=== PATIENT | female | born 1975 | race Caucasian/White ===

== ENCOUNTER 2017-01-16 01:46 | Emergency (ER) | payer BC ==
[~2017-01-16] VITALS: Ht 167.6 cm; Wt 61.2 kg
[~2017-01-16 01:46] MED LIST: ALPRAZOLAM0.25 M2 PO; ANAPROX DS550 MG PO; ANTIVERT25 MG PO; CIPRO500 MG PO; CIPROFLOXACIN500 MG PO; CLARITIN10 MG PO; CYCLOBENZAPRINE10 MG PO; FEOSOL45 MG PO; FLAGYL500 MG PO; FLEXERIL10 MG PO; FLORINEF0.1 MG; FLORINEF0.1 MG PO; FOLIC ACID1 MG PO; HYDROCODONE BIT1 T11 PO; HYDROCORTISONE20 MG PO; HYDROCORTISONE5 MG PO; IBUPROFEN600 MG PO; KEFLEX500 MG PO; LEVOFLOXACIN500 MG PO; LYRICA25 M1 PO; MACRODANTIN50 MG PO; MEDROL DOSEPAK4 MG PO; NAPROSYN500 MG PO; NATURE'S BLEND F1 MG PO; ROBAXIN750 MG PO; SERTRALINE HYDR50 MG PO; SERTRALINE50 MG PO; SYNTHROID0.125 MG PO; SYNTHROID0.137 MG PO; ULTRAM50 MG PO; VITAMIN D5000 I2 PO; ZITHROMAX Z PA250 MG PO; ZOFRAN4 MG PO; Zofran4 MG PO
[2017-01-16] MEDS ORDERED: VALIUM10 MG PO (02:51)
[2017-01-16] MEDS ORDERED: PREDNISONE50 MG PO (02:51)
[2017-01-16] MEDS ORDERED: NAPROSYN500 MG PO (02:51)
== END 2017-01-16 03:07 | disposition home or self-care (01) ==
LOC: ED 01:46
DX: M54.14 Radiculopathy, thoracic region (principal); Z79.899 Other long term (current) drug therapy

== ENCOUNTER 2017-02-09 18:23 | Emergency (ER) | payer BC ==
[~2017-02-09] VITALS: Ht 167.6 cm; Wt 59.0 kg
[~2017-02-09 18:23] MED LIST changes: +PREDNISONE50 MG PO; +VALIUM10 MG PO
[2017-02-09] MEDS ORDERED: HYDROCODONE BIT1 T11 PO (19:43)
[2017-02-09] MEDS ORDERED: MEDROL DOSEPAK4 MG PO (19:43)
== END 2017-02-09 21:09 | disposition home or self-care (01) ==
LOC: ED 18:23
DX: M54.2 Cervicalgia (principal); Z79.899 Other long term (current) drug therapy

== ENCOUNTER → 2017-02-25 | Outpatient (CLI) | payer BC | END | disposition home or self-care (01) | LOC: CT 13:58 | DX: M19.012 Primary osteoarthritis, left shoulder (principal); M19.011 Primary osteoarthritis, right shoulder; E27.9 Disorder of adrenal gland, unspecified; M54.9 Dorsalgia, unspecified; M54.6 Pain in thoracic spine ==

== ENCOUNTER 2017-07-12 20:47 | Emergency (ER) | payer BC ==
[~2017-07-12] VITALS: Ht 167.6 cm; Wt 61.2 kg
[2017-07-12 21:43] LABS: BASO % 0.5 % (0.0-1.0); EOS # 0.1 10*3/uL (0.0-0.4); EOS % 1.3 % (1.0-4.0); HEMATOCRIT 38.2 % (37.0-47.0); LYMPH % 36.8 % (27.0-41.0); MEAN CELL VOLUME 91.6 fl (81.0-99.0); MEAN CORPUSCULAR HGB 31.2 pg (27.0-31.0); MEAN PLATELET VOLUME 9.9 fl (9.6-12.3); MONO # 0.6 10*3/uL (0.1-1.0); MONO % 7.6 % (3.0-9.0); NEUT # 4.4 10*3/uL (2.3-7.9); NEUT % 53.6 % (47.0-73.0); PLATELET COUNT AUTOMATED 255 10*3/uL (130-400); RED BLOOD COUNT 4.17 10*6/uL (4.10-5.10); RED CELL DISTRI WIDTH 12.4 % (0-14.5); WHITE BLOOD COUNT 8.2 10*3/uL (4.8-10.8)
[2017-07-12 22:04] LABS: ALBUMIN 3.8 gm/dl (3.1-4.5); ALKALINE PHOSPHATASE 39 U/L (45-117); BUN 11 mg/dl (7-24); CHLORIDE 107 mmol/L (98-107); CPK 31 U/L (26-192); CREATININE 0.75 mg/dL (0.55-1.02); LIPASE 131 U/L (73-393); POTASSIUM 3.5 mmol/L (3.5-5.1); SGOT/AST 6 IU/L (3-35); SGPT/ALT 14 U/L (12-78); SODIUM 140 mmol/L (136-145); TOTAL PROTEIN 6.8 gm/dL (6.4-8.2)
[2017-07-12 22:05] LABS: CKMB < 0.5 ng/ml (0.5-3.6); TROPONIN I < 0.015 ng/ml (<0.045)
[2017-07-13] MEDS ORDERED: LASIX20 MG PO (00:07)
== END 2017-07-13 00:36 | disposition home or self-care (01) ==
LOC: ED 20:47
PROVIDERS: Nurse Practitioner Family
DX: R60.0 Localized edema (principal)

== ENCOUNTER → 2018-01-12 | Outpatient (CLI) | payer BC ==
[~2018-01-12] MED LIST changes: +LASIX20 MG PO
== END | disposition home or self-care (01) ==
LOC: US 01-11 14:00
DX: M79.89 Other specified soft tissue disorders (principal)

== ENCOUNTER → 2018-02-03 | Outpatient (CLI) | payer BC ==
[2018-02-03 09:59] LABS: BASO % 0.4 % (0.0-1.0); EOS # 0.1 10*3/uL (0.0-0.4); EOS % 1.6 % (1.0-4.0); HEMOGLOBIN 13.6 g/dl (12.0-16.0); LYMPH # 1.8 10*3/uL (1.3-4.4); LYMPH % 35.5 % (27.0-41.0); MEAN CELL VOLUME 90.9 fl (81.0-99.0); MEAN CORPUSCULAR HGB 30.2 pg (27.0-31.0); MEAN CORPUSCULAR HGB CONC 33.2 g/dl (33.0-37.0); MEAN PLATELET VOLUME 9.7 fl (9.6-12.3); MONO # 0.4 10*3/uL (0.1-1.0); MONO % 7.8 % (3.0-9.0); NEUT # 2.7 10*3/uL (2.3-7.9); NEUT % 54.5 % (47.0-73.0); PLATELET COUNT AUTOMATED 311 10*3/uL (130-400); RED BLOOD COUNT 4.51 10*6/uL (4.10-5.10)
[2018-02-03 10:39] LABS: ALBUMIN 4.1 gm/dl (3.1-4.5); ALKALINE PHOSPHATASE 51 U/L (45-117); BUN 12 mg/dl (7-24); CHLORIDE 104 mmol/L (98-107); CREATININE 0.73 mg/dL (0.55-1.02); POTASSIUM 3.7 mmol/L (3.5-5.1); SGOT/AST 11 IU/L (3-35); SGPT/ALT 15 U/L (12-78); SODIUM 137 mmol/L (136-145); TOTAL PROTEIN 7.7 gm/dL (6.4-8.2)
[2018-02-04 08:09] LABS: COMPLEMENT C4 001834 24 mg/dL (14-44); IMMUNOGLOBULIN G, QNT 856 mg/dL (700-1600); IMMUNOGLOBULIN M, QNT 80 mg/dL (26-217)
[2018-02-06 10:07] LABS: ANTI-DSDNA ANTIBODIES 096339 <1 IU/mL (0-9)
[2018-02-06 16:07] LABS: A/G RATIO 1.6 (0.7-1.7); ALBUMIN 4.3 g/dL (2.9-4.4); ALPHA-1-GLOBULIN 0.2 g/dL (0.0-0.4); ALPHA-2-GLOBULIN 0.7 g/dL (0.4-1.0); BETA GLOBULIN 0.9 g/dL (0.7-1.3); GAMMA GLOBULIN 0.9 g/dL (0.4-1.8); GLOBULIN, TOTAL 2.7 g/dL (2.2-3.9); M-SPIKE Not Observed g/dL (Not Observed)
== END | disposition home or self-care (01) ==
LOC: US 01-20 10:00 → LAB 09:31 → US 10:00
PROVIDERS: Internal Medicine Rheumatology
DX: E03.9 Hypothyroidism, unspecified (principal); K76.89 Other specified diseases of liver; E27.1 Primary adrenocortical insufficiency; M79.7 Fibromyalgia; M35.09 Sjogren syndrome with other organ involvement

== ENCOUNTER → 2018-02-28 | Outpatient (CLI) | payer BC ==
[2018-02-28 09:17] LABS: BUN 17 mg/dl (7-24); CHLORIDE 104 mmol/L (98-107); CREATININE 0.74 mg/dL (0.55-1.02); PHOSPHOROUS 3.2 mg/dL (2.5-4.9); SODIUM 141 mmol/L (136-145)
[2018-02-28 09:42] LABS: VITAMIN D, 25-HYDROXY 33.5 ng/mL (30-100)
== END | disposition home or self-care (01) ==
LOC: LAB 08:27
PROVIDERS: Internal Medicine Endocrinology, Diabetes & Metabolism
DX: E03.9 Hypothyroidism, unspecified (principal); E55.9 Vitamin D deficiency, unspecified; E27.40 Unspecified adrenocortical insufficiency

== ENCOUNTER → 2018-03-23 | Outpatient (CLI) | payer BC ==
[~2018-03-23] MED LIST changes: +CORTEF20 MG PO; +HYDROCORTISONE10 MG PO; +K-TAB10 MEQ PO
== END ==
LOC: RAD 15:57
DX: M25.511 Pain in right shoulder (principal)

== ENCOUNTER 2018-05-03 06:15 | Emergency (ER) | payer BC ==
[~2018-05-03] VITALS: Ht 167.6 cm; Wt 65.8 kg
--- NOTE | ~2018-05-03 | EKG ---
[place], [place] ELECTROCARDIOGRAM REPORT NAME: CHIRAG EPPS UNIT #: [id number] ROOM: DOCTOR: EPIPHANY DRAFT REPORT BIRTHDATE: [birth year] [facility] Test Date: 2018-05-03 Test Time: 06:54:34 Pat Name: CHIRAG EPPS Department: Room: Gender: F Claims Correspondence Clerk: 15 : 1975 Requested By: EDILIA HOFFMANN Order Number: [id number] Reading MD: Radha Carlson MD Measurements Intervals [place] Rate: 109 P: 67 NM: 176 QRS: 58 QRSD: 102 T: 43 QT: 336 QTc: 453 Interpretive Statements Sinus tachycardia Borderline repolarization abnormality NONSPECIFIC ST DEPRESSION, LATERAL LEADS Baseline wander in lead(s) V1,V2,V5,V6 Electronically Signed On 05-04-2018 16:04:03 PDT by Radha Carlson MD CM:EKGRPT:ELECTROCARDIOGRAM REPORT [id number] EDILIA HOFFMANN MD EPIPHANY DRAFT REPORT EDILIA HOFFMANN MD
[~2018-05-03 06:15] MED LIST changes: -CORTEF20 MG PO; -HYDROCORTISONE10 MG PO; -K-TAB10 MEQ PO
[2018-05-03] MEDS ORDERED: CORTEF20 MG PO (06:19)
[2018-05-03] MEDS ORDERED: HYDROCORTISONE10 MG PO (06:19)
[2018-05-03] MEDS ORDERED: K-TAB10 MEQ PO (06:20)
[2018-05-03 06:57] LABS: BILIRUBIN NEGATIVE (NEGATIVE); BLOOD NEGATIVE (NEGATIVE); CLARITY SL CLOUDY (CLEAR); COLOR YELLOW (YELLOW); GLUCOSE NEGATIVE (NEGATIVE); KETONE NEGATIVE (NEGATIVE); LEUKO ESTERASE NEGATIVE (NEGATIVE); NITRITE NEGATIVE (NEGATIVE); UROBILINOGEN 0.2 E.U./dl (0.2-1.0)
[2018-05-03 07:08] LABS: BACTERIA 1+
[2018-05-03 07:27] LABS: BASO % 0.3 % (0.0-1.0); EOS % 0.4 % (1.0-4.0); HEMATOCRIT 41.7 % (37.0-47.0); HEMOGLOBIN 13.7 g/dl (12.0-16.0); LYMPH # 1.8 10*3/uL (1.3-4.4); LYMPH % 16.7 % (27.0-41.0); MEAN CELL VOLUME 88.3 fl (81.0-99.0); MEAN CORPUSCULAR HGB CONC 32.9 g/dl (33.0-37.0); MEAN PLATELET VOLUME 10.4 fl (9.6-12.3); MONO # 0.9 10*3/uL (0.1-1.0); MONO % 8.2 % (3.0-9.0); NEUT % 74.1 % (47.0-73.0); PLATELET COUNT AUTOMATED 230 10*3/uL (130-400); RED BLOOD COUNT 4.72 10*6/uL (4.10-5.10); RED CELL DISTRI WIDTH 11.9 % (0-14.5); WHITE BLOOD COUNT 10.8 10*3/uL (4.8-10.8)
[2018-05-03 07:44] LABS: ALBUMIN 3.8 gm/dl (3.1-4.5); ALKALINE PHOSPHATASE 56 U/L (45-117); BUN 9 mg/dl (7-24); CHLORIDE 105 mmol/L (98-107); CREATININE 0.71 mg/dL (0.55-1.02); POTASSIUM 3.4 mmol/L (3.5-5.1); SGOT/AST 9 IU/L (3-35); SGPT/ALT 17 U/L (12-78); SODIUM 139 mmol/L (136-145); TOTAL PROTEIN 7.3 gm/dL (6.4-8.2)
== END 2018-05-03 11:11 | disposition short-term general hospital (02) ==
LOC: ED 06:15
PROVIDERS: Emergency Medicine Emergency Medical Services
DX: A41.9 Sepsis, unspecified organism (principal); J01.90 Acute sinusitis, unspecified; E27.2 Addisonian crisis; Z79.899 Other long term (current) drug therapy

== ENCOUNTER → 2018-05-27 | Outpatient (CLI) | payer BC ==
[~2018-05-27] MED LIST changes: +CORTEF20 MG PO; +HYDROCORTISONE10 MG PO; +K-TAB10 MEQ PO
[2018-05-27 11:11] LABS: PHOSPHOROUS 2.7 mg/dL (2.5-4.9); POTASSIUM 4.2 mmol/L (3.5-5.1)
[2018-05-27 12:12] LABS: THYROID STIM HORMONE (HS) 0.005 uIU/ml (0.358-4.75)
[2018-05-27 12:32] LABS: VITAMIN D, 25-HYDROXY 28.5 ng/mL (30-100)
== END | disposition home or self-care (01) ==
LOC: LAB 10:21
PROVIDERS: Internal Medicine Endocrinology, Diabetes & Metabolism
DX: E03.9 Hypothyroidism, unspecified (principal); R73.01 Impaired fasting glucose; E27.40 Unspecified adrenocortical insufficiency; E55.9 Vitamin D deficiency, unspecified

== ENCOUNTER → 2018-09-22 | Outpatient (CLI) | payer BC ==
[2018-09-22 12:11] LABS: PHOSPHOROUS 3.2 mg/dL (2.5-4.9); POTASSIUM 3.8 mmol/L (3.5-5.1)
[2018-09-22 12:16] LABS: THYROID STIM HORMONE (HS) 0.613 uIU/ml (0.358-4.75)
== END | disposition home or self-care (01) ==
LOC: LAB 11:05
PROVIDERS: Internal Medicine Endocrinology, Diabetes & Metabolism
DX: E03.9 Hypothyroidism, unspecified (principal); E55.9 Vitamin D deficiency, unspecified; R73.01 Impaired fasting glucose; E27.40 Unspecified adrenocortical insufficiency

== ENCOUNTER → 2018-11-03 | Outpatient (CLI) | payer BC ==
[2018-11-03 13:15] LABS: BASO % 0.7 % (0.0-1.0); EOS # 0.2 10*3/uL (0.0-0.4); EOS % 2.9 % (1.0-4.0); HEMATOCRIT 41.4 % (37.0-47.0); HEMOGLOBIN 13.8 g/dl (12.0-16.0); LYMPH # 2.1 10*3/uL (1.3-4.4); LYMPH % 38.3 % (27.0-41.0); MEAN CORPUSCULAR HGB CONC 33.3 g/dl (33.0-37.0); MEAN PLATELET VOLUME 9.8 fl (9.6-12.3); MONO # 0.5 10*3/uL (0.1-1.0); MONO % 8.7 % (3.0-9.0); NEUT # 2.7 10*3/uL (2.3-7.9); NEUT % 49.2 % (47.0-73.0); PLATELET COUNT AUTOMATED 316 10*3/uL (130-400); RED CELL DISTRI WIDTH 12.3 % (0-14.5); WHITE BLOOD COUNT 5.5 10*3/uL (4.8-10.8)
[2018-11-03 13:43] LABS: ALBUMIN 3.7 gm/dl (3.1-4.5); ALKALINE PHOSPHATASE 56 U/L (45-117); BUN 10 mg/dl (7-24); CHLORIDE 108 mmol/L (98-107); CPK 62 U/L (26-192); CREATININE 0.78 mg/dL (0.55-1.02); POTASSIUM 3.9 mmol/L (3.5-5.1); SGOT/AST 11 IU/L (3-35); SGPT/ALT 15 U/L (12-78); SODIUM 144 mmol/L (136-145); T3 UPTAKE 35 % (31-39); THYROXINE (T4) TOTAL 9.8 ug/dl (4.8-13.9); TOTAL PROTEIN 7.1 gm/dL (6.4-8.2)
[2018-11-03 13:49] LABS: THYROID STIM HORMONE (HS) 0.627 uIU/ml (0.358-4.75)
[2018-11-05 12:11] LABS: LUPUS DRVVT 41.4 sec (0.0-47.0); PTT-LA 34.7 sec (0.0-51.9)
[2018-11-06 13:08] LABS: LUPUS REFLEX INTERPRETATION Comment: (.)
== END | disposition home or self-care (01) ==
LOC: LAB 12:37
PROVIDERS: Internal Medicine
DX: E27.1 Primary adrenocortical insufficiency (principal); M35.00 Sjogren syndrome, unspecified

== ENCOUNTER → 2019-02-20 | Outpatient (CLI) | payer BC ==
[2019-02-20 19:23] LABS: POTASSIUM 4.3 mmol/L (3.5-5.1)
[2019-02-20 19:31] LABS: PHOSPHOROUS 3.4 mg/dL (2.5-4.9)
[2019-02-20 19:36] LABS: THYROID STIM HORMONE (HS) 2.11 uIU/ml (0.358-4.75)
== END | disposition home or self-care (01) ==
LOC: LAB 18:51
PROVIDERS: Internal Medicine Endocrinology, Diabetes & Metabolism
DX: E27.40 Unspecified adrenocortical insufficiency (principal); E55.9 Vitamin D deficiency, unspecified; E03.9 Hypothyroidism, unspecified; R73.01 Impaired fasting glucose

== ENCOUNTER → 2019-03-02 | Outpatient (CLI) | payer BC ==
[2019-03-02 10:31] LABS: BASO % 0.4 % (0.0-1.0); EOS # 0.2 10*3/uL (0.0-0.4); EOS % 2.9 % (1.0-4.0); HEMATOCRIT 41.1 % (37.0-47.0); HEMOGLOBIN 13.5 g/dl (12.0-16.0); LYMPH # 3.2 10*3/uL (1.3-4.4); LYMPH % 46.2 % (27.0-41.0); MEAN CELL VOLUME 90.5 fl (81.0-99.0); MEAN CORPUSCULAR HGB 29.7 pg (27.0-31.0); MEAN CORPUSCULAR HGB CONC 32.8 g/dl (33.0-37.0); MEAN PLATELET VOLUME 9.7 fl (9.6-12.3); MONO # 0.5 10*3/uL (0.1-1.0); NEUT % 42.9 % (47.0-73.0); PLATELET COUNT AUTOMATED 343 10*3/uL (130-400); RED BLOOD COUNT 4.54 10*6/uL (4.10-5.10); RED CELL DISTRI WIDTH 12.4 % (0-14.5)
[2019-03-02 10:58] LABS: ALBUMIN 3.7 gm/dl (3.1-4.5); ALKALINE PHOSPHATASE 59 U/L (45-117); BUN 11 mg/dl (7-24); CHLORIDE 107 mmol/L (98-107); POTASSIUM 3.7 mmol/L (3.5-5.1); SGOT/AST 4 IU/L (3-35); SGPT/ALT 14 U/L (12-78); SODIUM 141 mmol/L (136-145); TOTAL PROTEIN 7.4 gm/dL (6.4-8.2)
[2019-03-03 07:05] LABS: THYROID PEROXIDASE (TPO) AB 82 IU/mL (0-34)
[2019-03-03 08:10] LABS: COMPLEMENT C4 001834 20 mg/dL (14-44)
[2019-03-03 18:04] LABS: t-TRANSGLUTAMINASE (tTG) IGA <2 U/mL (0-3)
[2019-03-05 15:08] LABS: THYROGLOBULIN ANTIBODY <1.0 IU/mL (0.0-0.9)
[2019-03-05 20:05] LABS: ANTI-RNP ANTIBODIES 0.9 AI (0.0-0.9); SJOGREN ANTI-SS-A <0.2 AI (0.0-0.9); SJOREN AB, ANTI-SS-B <0.2 AI (0.0-0.9)
[2019-03-07 13:05] LABS: HLA-B27 ANTIGEN Negative (.)
== END | disposition home or self-care (01) ==
LOC: LAB 09:15
PROVIDERS: Internal Medicine
DX: M70.61 Trochanteric bursitis, right hip (principal); M54.5 Low back pain; G89.29 Other chronic pain; R76.8 Other specified abnormal immunological findings in serum; G62.9 Polyneuropathy, unspecified; M79.18 Myalgia, other site

== ENCOUNTER → 2020-03-28 | Outpatient (CLI) | payer BC ==
[2020-03-28 13:09] LABS: BUN 6 mg/dl (7-24); CHLORIDE 107 mmol/L (98-107); POTASSIUM 3.8 mmol/L (3.5-5.1); SODIUM 139 mmol/L (136-145)
== END | disposition home or self-care (01) ==
LOC: LAB 11:31
PROVIDERS: Internal Medicine Endocrinology, Diabetes & Metabolism
DX: E27.40 Unspecified adrenocortical insufficiency (principal); R73.01 Impaired fasting glucose; E55.9 Vitamin D deficiency, unspecified; E03.9 Hypothyroidism, unspecified

== ENCOUNTER 2020-04-03 00:04 | Emergency (ER) | payer BC ==
[~2020-04-03] VITALS: Ht 167.6 cm; Wt 68.0 kg
== END 2020-04-03 01:57 | disposition home or self-care (01) ==
LOC: ED 00:04
DX: S96.912A Strain of unspecified muscle and tendon at ankle and foot level, left foot, initial encounter (principal); Z79.899 Other long term (current) drug therapy; W22.8XXA Striking against or struck by other objects, initial encounter; Y93.89 Activity, other specified; Y92.89 Other specified places as the place of occurrence of the external cause; Y99.8 Other external cause status

== ENCOUNTER → 2020-05-14 | Outpatient (CLI) | payer BC | END | disposition home or self-care (01) | LOC: LAB 06:55 | DX: E03.9 Hypothyroidism, unspecified (principal); R73.01 Impaired fasting glucose; E55.9 Vitamin D deficiency, unspecified; E27.40 Unspecified adrenocortical insufficiency ==

== ENCOUNTER → 2020-05-20 | Outpatient (CLI) | payer BC | END | disposition home or self-care (01) | LOC: COVID19 05:17 | DX: R05 Cough (principal); R09.81 Nasal congestion; R50.9 Fever, unspecified; Z20.828 Contact with and (suspected) exposure to other viral communicable diseases ==

== ENCOUNTER → 2020-08-26 | Outpatient (CLI) | payer BC | END | disposition home or self-care (01) | LOC: COVID19 00:30 | PROVIDERS: ATTEND Family Medicine | DX: Z20.828 Contact with and (suspected) exposure to other viral communicable diseases (principal) ==

== ENCOUNTER → 2020-10-07 | Outpatient (CLI) | payer BC ==
[2020-10-07 08:09] LABS: BUN 12 mg/dl (7-24); CHLORIDE 110 mmol/L (98-107); CHOLESTEROL 124 mg/dL (<200); CREATININE 0.69 mg/dL (0.55-1.02); HDL CHOLESTEROL 56 mg/dl (40-60); LDL CHOLESTEROL 60 mg/dL (9-159); POTASSIUM 3.9 mmol/L (3.5-5.1); SGOT/AST 14 IU/L (3-35); SGPT/ALT 18 U/L (12-78); SODIUM 140 mmol/L (136-145); TRIGLYCERIDES 38 mg/dl (<150); VLDL CHOLESTEROL 8 mg/dL (6-40)
[2020-10-07 08:15] LABS: THYROID STIM HORMONE (HS) 0.043 uIU/ml (0.358-4.75)
== END | disposition home or self-care (01) ==
LOC: LAB 07:14
PROVIDERS: ATTEND Internal Medicine Endocrinology, Diabetes & Metabolism
DX: E27.40 Unspecified adrenocortical insufficiency (principal); E55.9 Vitamin D deficiency, unspecified; E03.9 Hypothyroidism, unspecified; R73.01 Impaired fasting glucose

== ENCOUNTER → 2020-11-04 | Outpatient (CLI) | payer SELFPAY ==
[~2020-11-04] MED LIST changes: +AMOXICILLIN500 M3 PO
== END | disposition home or self-care (01) ==
LOC: COVID19 08:06
PROVIDERS: ATTEND Family Medicine
DX: Z20.822 Contact with and (suspected) exposure to COVID-19 (principal); R05 Cough; R51.9 Headache, unspecified; R09.81 Nasal congestion

== ENCOUNTER 2021-01-27 06:01 | Emergency (ER) | payer BC ==
[~2021-01-27] VITALS: Ht 167.6 cm; Wt 65.8 kg
[~2021-01-27 06:01] MED LIST changes: -AMOXICILLIN500 M3 PO
[2021-01-27 06:59] LABS: BASO % 0.4 % (0.0-1.0); EOS # 0.1 10*3/uL (0.0-0.4); EOS % 1.3 % (1.0-4.0); HEMATOCRIT 40.2 % (37.0-47.0); LYMPH # 0.7 10*3/uL (1.3-4.4); LYMPH % 6.9 % (27.0-41.0); MEAN CORPUSCULAR HGB 29.3 pg (27.0-31.0); MEAN CORPUSCULAR HGB CONC 33.3 g/dl (33.0-37.0); MEAN PLATELET VOLUME 9.5 fl (9.6-12.3); MONO # 0.4 10*3/uL (0.1-1.0); MONO % 3.9 % (3.0-9.0); NEUT # 8.2 10*3/uL (2.3-7.9); NEUT % 87.3 % (47.0-73.0); PLATELET COUNT AUTOMATED 265 10*3/uL (130-400); RED BLOOD COUNT 4.57 10*6/uL (4.10-5.10); RED CELL DISTRI WIDTH 12.8 % (0-14.5); WHITE BLOOD COUNT 9.4 10*3/uL (4.8-10.8)
[2021-01-27 07:11] LABS: ACT PARTIAL THROMBO TIME 29.4 SECONDS (20.0-32.1)
[2021-01-27 07:23] LABS: ALBUMIN 3.6 gm/dl (3.1-4.5); ALKALINE PHOSPHATASE 62 U/L (45-117); BUN 7 mg/dl (7-24); CHLORIDE 107 mmol/L (98-107); CREATININE 0.78 mg/dL (0.55-1.02); LIPASE 113 U/L (73-393); POTASSIUM 3.9 mmol/L (3.5-5.1); SGOT/AST 10 IU/L (3-35); SGPT/ALT 13 U/L (12-78); SODIUM 136 mmol/L (136-145); TOTAL PROTEIN 7.2 gm/dL (6.4-8.2)
[2021-01-27 07:47] LABS: BILIRUBIN Negative (Negative); BLOOD 3+ (Negative); CLARITY Cloudy (Clear); COLOR Dark Yellow (Yellow); GLUCOSE Negative (Negative); KETONE Trace (Negative); LEUKO ESTERASE 1+ (Negative); NITRITE Negative (Negative); SPECIFIC GRAVITY >= 1.030 (1.001-1.030)
[2021-01-27 08:05] LABS: MUCOUS 4+; RBC TNTC rbc/hpf (0-2)
[2021-01-27] MEDS ORDERED: AMOXICILLIN500 M3 PO (08:21)
== END 2021-01-27 08:30 | disposition home or self-care (01) ==
LOC: ED 06:01
PROVIDERS: Hospitalist
DX: B34.9 Viral infection, unspecified (principal); Z20.822 Contact with and (suspected) exposure to COVID-19; J32.9 Chronic sinusitis, unspecified; R10.11 Right upper quadrant pain; R19.7 Diarrhea, unspecified; Z79.899 Other long term (current) drug therapy

== ENCOUNTER → 2021-02-09 | Outpatient (CLI) | payer BC ==
[~2021-02-09] MED LIST changes: +AMOXICILLIN500 M3 PO
== END | disposition home or self-care (01) ==
LOC: RAD 19:36
PROVIDERS: ATTEND Nurse Practitioner Family
DX: M48.02 Spinal stenosis, cervical region (principal); M25.78 Osteophyte, vertebrae; M50.822 Other cervical disc disorders at C5-C6 level

== ENCOUNTER → 2021-04-03 | Outpatient (CLI) | payer BC ==
[2021-04-03 11:54] LABS: BASO % 0.3 % (0.0-1.0); EOS # 0.1 10*3/uL (0.0-0.4); EOS % 1.7 % (1.0-4.0); HEMATOCRIT 40.5 % (37.0-47.0); LYMPH # 1.6 10*3/uL (1.3-4.4); LYMPH % 20.4 % (27.0-41.0); MEAN CORPUSCULAR HGB CONC 32.6 g/dl (33.0-37.0); MEAN PLATELET VOLUME 9.7 fl (9.6-12.3); MONO # 0.4 10*3/uL (0.1-1.0); MONO % 5.3 % (3.0-9.0); NEUT # 5.5 10*3/uL (2.3-7.9); PLATELET COUNT AUTOMATED 279 10*3/uL (130-400); RED BLOOD COUNT 4.55 10*6/uL (4.10-5.10); RED CELL DISTRI WIDTH 12.6 % (0-14.5); WHITE BLOOD COUNT 7.6 10*3/uL (4.8-10.8)
[2021-04-03 12:25] LABS: ALBUMIN 3.8 gm/dl (3.1-4.5); ALKALINE PHOSPHATASE 59 U/L (45-117); BUN 10 mg/dl (7-24); CHLORIDE 106 mmol/L (98-107); CREATININE 0.58 mg/dL (0.55-1.02); POTASSIUM 3.8 mmol/L (3.5-5.1); SGOT/AST 8 IU/L (3-35); SGPT/ALT 15 U/L (12-78); SODIUM 139 mmol/L (136-145); TOTAL PROTEIN 7.4 gm/dL (6.4-8.2)
[2021-04-03 12:32] LABS: CHOLESTEROL 145 mg/dL (<200); LDL CHOLESTEROL 67 mg/dL (9-159)
[2021-04-03 12:56] LABS: VITAMIN D, 25-HYDROXY 34.3 ng/mL (30-100)
[2021-04-04 05:06] LABS: FOLLICLE STIMULATING HORMONE 14.2 mIU/mL (.); LUTEINIZING HORMONE 8.3 mIU/mL (.)
== END | disposition home or self-care (01) ==
LOC: LAB 11:27
PROVIDERS: Family Medicine; ATTEND Internal Medicine Endocrinology, Diabetes & Metabolism
DX: E03.9 Hypothyroidism, unspecified (principal); R53.83 Other fatigue; E27.1 Primary adrenocortical insufficiency; E78.2 Mixed hyperlipidemia; J30.9 Allergic rhinitis, unspecified; Z86.39 Personal history of other endocrine, nutritional and metabolic disease

== ENCOUNTER → 2021-06-01 | Outpatient (CLI) | payer BC ==
[2021-06-01 17:41] LABS: ALBUMIN 4.1 gm/dl (3.1-4.5); ALKALINE PHOSPHATASE 66 U/L (45-117); BUN 13 mg/dl (7-24); CHLORIDE 102 mmol/L (98-107); CREATININE 0.69 mg/dL (0.55-1.02); FREE T4 0.89 ng/dl (0.76-1.46); POTASSIUM 4.1 mmol/L (3.5-5.1); SGOT/AST 10 IU/L (3-35); SGPT/ALT 19 U/L (12-78); SODIUM 136 mmol/L (136-145)
== END | disposition home or self-care (01) ==
LOC: LAB 16:58
PROVIDERS: ATTEND Physician Assistant
DX: E27.1 Primary adrenocortical insufficiency (principal); E03.9 Hypothyroidism, unspecified

== ENCOUNTER → 2021-06-18 | Outpatient (CLI) | payer BC | END | disposition home or self-care (01) | LOC: CARD 12:57 | PROVIDERS: ATTEND Family Medicine | DX: I08.1 Rheumatic disorders of both mitral and tricuspid valves (principal); R01.1 Cardiac murmur, unspecified ==

== ENCOUNTER → 2021-09-27 | Outpatient (CLI) | payer BC ==
[2021-09-27 13:01] LABS: ALBUMIN 3.6 gm/dl (3.1-4.5); ALKALINE PHOSPHATASE 44 U/L (45-117); BUN 12 mg/dl (7-24); CHLORIDE 109 mmol/L (98-107); CHOLESTEROL 130 mg/dL (<200); CREATININE 0.68 mg/dL (0.55-1.02); FREE T4 0.68 ng/dl (0.76-1.46); LDL CHOLESTEROL 62 mg/dL (9-159); POTASSIUM 4.1 mmol/L (3.5-5.1); SGOT/AST 9 IU/L (3-35); SGPT/ALT 18 U/L (12-78); SODIUM 139 mmol/L (136-145); TRIGLYCERIDES 54 mg/dl (<150)
[2021-09-29 04:06] LABS: LDL CHOLESTEROL (DIRECT) 77 mg/dL (0-99)
== END | disposition home or self-care (01) ==
LOC: LAB 12:23
PROVIDERS: ATTEND Internal Medicine Endocrinology, Diabetes & Metabolism
DX: E03.9 Hypothyroidism, unspecified (principal); E27.1 Primary adrenocortical insufficiency; E78.2 Mixed hyperlipidemia

== ENCOUNTER → 2021-10-12 | Outpatient (CLI) | payer BC ==
[2021-10-12 17:24] LABS: MEAN CELL VOLUME 87.8 fl (81.0-99.0); MEAN CORPUSCULAR HGB 29.3 pg (27.0-31.0); MEAN CORPUSCULAR HGB CONC 33.4 g/dl (33.0-37.0); MEAN PLATELET VOLUME 9.9 fl (9.6-12.3); RED BLOOD COUNT 4.67 10*6/uL (4.10-5.10); RED CELL DISTRI WIDTH 12.2 % (0-14.5); WHITE BLOOD COUNT 7.9 10*3/uL (4.8-10.8)
[2021-10-12 17:40] LABS: ALBUMIN 3.9 gm/dl (3.1-4.5); ALKALINE PHOSPHATASE 45 U/L (45-117); BUN 15 mg/dl (7-24); CHLORIDE 106 mmol/L (98-107); CREATININE 0.68 mg/dL (0.55-1.02); POTASSIUM 3.8 mmol/L (3.5-5.1); SGOT/AST 13 IU/L (3-35); SGPT/ALT 17 U/L (12-78); SODIUM 138 mmol/L (136-145); TOTAL PROTEIN 7.5 gm/dL (6.4-8.2)
== END | disposition home or self-care (01) ==
LOC: LAB 17:05
PROVIDERS: ATTEND Family Medicine
DX: R51.9 Headache, unspecified (principal); R53.83 Other fatigue

== ENCOUNTER → 2021-11-20 | Outpatient (CLI) | payer BC | END | disposition home or self-care (01) | LOC: US 08:49 | PROVIDERS: ATTEND Family Medicine | DX: R10.11 Right upper quadrant pain (principal) ==

== ENCOUNTER → 2021-12-31 | Outpatient (CLI) | payer BC | END | disposition home or self-care (01) | LOC: NM 12-28 07:00 | PROVIDERS: ATTEND Family Medicine | DX: K83.9 Disease of biliary tract, unspecified (principal) ==

== ENCOUNTER → 2022-02-26 | Outpatient (CLI) | payer BC ==
[2022-02-26 11:18] LABS: ALKALINE PHOSPHATASE 45 U/L (45-117); BUN 10 mg/dl (7-24); CHLORIDE 108 mmol/L (98-107); CHOLESTEROL 119 mg/dL (<200); CREATININE 0.69 mg/dL (0.55-1.02); FREE T4 0.93 ng/dl (0.76-1.46); LDL CHOLESTEROL 50 mg/dL (9-159); POTASSIUM 3.7 mmol/L (3.5-5.1); SGOT/AST 11 IU/L (3-35); SGPT/ALT 18 U/L (12-78); SODIUM 140 mmol/L (136-145); TOTAL PROTEIN 7.1 gm/dL (6.4-8.2); TRIGLYCERIDES 48 mg/dl (<150)
[2022-02-27 04:06] LABS: LDL CHOLESTEROL (DIRECT) 64 mg/dL (0-99)
== END | disposition home or self-care (01) ==
LOC: LAB 10:41
PROVIDERS: ATTEND Physician Assistant
DX: E78.2 Mixed hyperlipidemia (principal); E03.9 Hypothyroidism, unspecified; E27.1 Primary adrenocortical insufficiency

== ENCOUNTER 2022-04-21 04:32 | Emergency (ER) | payer BC ==
[~2022-04-21] VITALS: Ht 167.6 cm; Wt 59.0 kg
[2022-04-21 05:54] LABS: ALKALINE PHOSPHATASE 50 U/L (45-117); BUN 19 mg/dl (7-24); CHLORIDE 107 mmol/L (98-107); CREATININE 0.69 mg/dL (0.55-1.02); SGOT/AST 14 IU/L (3-35); SGPT/ALT 26 U/L (12-78); SODIUM 142 mmol/L (136-145); TOTAL PROTEIN 6.6 gm/dL (6.4-8.2)
[2022-04-21 06:03] LABS: BASO % 0.1 % (0.0-1.0); EOS # 0.2 10*3/uL (0.0-0.4); EOS % 1.9 % (1.0-4.0); HEMATOCRIT 38.3 % (37.0-47.0); LYMPH % 42.8 % (27.0-41.0); MEAN CORPUSCULAR HGB 29.2 pg (27.0-31.0); MEAN CORPUSCULAR HGB CONC 32.1 g/dl (33.0-37.0); MEAN PLATELET VOLUME 9.9 fl (9.6-12.3); MONO # 0.7 10*3/uL (0.1-1.0); MONO % 7.6 % (3.0-9.0); NEUT # 4.4 10*3/uL (2.3-7.9); NEUT % 47.2 % (47.0-73.0); PLATELET COUNT AUTOMATED 342 10*3/uL (130-400); RED BLOOD COUNT 4.21 10*6/uL (4.10-5.10); RED CELL DISTRI WIDTH 13.2 % (0-14.5); WHITE BLOOD COUNT 9.4 10*3/uL (4.8-10.8)
== END 2022-04-21 06:59 | disposition home or self-care (01) ==
LOC: ED 04:32
PROVIDERS: Emergency Medicine
DX: R00.2 Palpitations (principal); R41.9 Unspecified symptoms and signs involving cognitive functions and awareness; Z79.899 Other long term (current) drug therapy

== ENCOUNTER 2022-08-06 10:10 | Emergency (ER) | payer BC ==
[~2022-08-06] VITALS: Ht 167.6 cm; Wt 59.0 kg
[2022-08-06 11:10] LABS: BASO % 0.3 % (0.0-1.0); EOS # 0.1 10*3/uL (0.0-0.4); EOS % 1.6 % (1.0-4.0); HEMATOCRIT 38.6 % (37.0-47.0); LYMPH # 0.6 10*3/uL (1.3-4.4); LYMPH % 8.1 % (27.0-41.0); MEAN CELL VOLUME 86.5 fl (81.0-99.0); MEAN CORPUSCULAR HGB 29.4 pg (27.0-31.0); MEAN CORPUSCULAR HGB CONC 33.9 g/dl (33.0-37.0); MONO # 0.4 10*3/uL (0.1-1.0); MONO % 5.4 % (3.0-9.0); NEUT # 6.2 10*3/uL (2.3-7.9); NEUT % 84.3 % (47.0-73.0); PLATELET COUNT AUTOMATED 201 10*3/uL (130-400); RED BLOOD COUNT 4.46 10*6/uL (4.10-5.10); WHITE BLOOD COUNT 7.4 10*3/uL (4.8-10.8)
[2022-08-06 11:31] LABS: ALKALINE PHOSPHATASE 47 U/L (45-117); BUN 13 mg/dl (7-24); CHLORIDE 106 mmol/L (98-107); CREATININE 0.73 mg/dL (0.55-1.02); LIPASE 113 U/L (73-393); POTASSIUM 3.3 mmol/L (3.5-5.1); SGOT/AST 13 IU/L (3-35); SGPT/ALT 17 U/L (12-78); SODIUM 137 mmol/L (136-145); TOTAL PROTEIN 6.9 gm/dL (6.4-8.2)
== END 2022-08-06 12:36 | disposition home or self-care (01) ==
LOC: ED 10:10
PROVIDERS: Student in an Organized Health Care Education/Training Program
DX: K80.50 Calculus of bile duct without cholangitis or cholecystitis without obstruction (principal); E27.1 Primary adrenocortical insufficiency; R42 Dizziness and giddiness; Z79.2 Long term (current) use of antibiotics; Z79.899 Other long term (current) drug therapy

== ENCOUNTER → 2022-08-26 | Day surgery (SDC) | payer BC ==
[2022-08-23 14:01] VITALS: BP 107/68
[~2022-08-26] VITALS: Ht 167.6 cm; Wt 59.0 kg
[2022-08-26] VITALS (7 sets, daily range): BP systolic 96–159; BP diastolic 43–80
[~2022-08-26] MED LIST changes: +COLACE100 MG PO; +HYDROCODONE-AC1 EAC1 PO; +ONDANSETRON HYDR4 M1 PO; +PROTONIX40 MG PO
== END | disposition home or self-care (01) ==
LOC: SDC 08-23 13:15
PROVIDERS: ATTEND Surgery
DX: K81.1 Chronic cholecystitis (principal); K82.8 Other specified diseases of gallbladder; G43.909 Migraine, unspecified, not intractable, without status migrainosus; E03.9 Hypothyroidism, unspecified; Z87.891 Personal history of nicotine dependence; K21.9 Gastro-esophageal reflux disease without esophagitis; Z79.899 Other long term (current) drug therapy

== ENCOUNTER 2022-10-19 04:30 | Emergency (ER) | payer BC ==
[~2022-10-19] VITALS: Ht 167.6 cm; Wt 56.7 kg
[2022-10-19 06:07] LABS: BASO % 0.2 % (0.0-1.0); EOS # 0.2 10*3/uL (0.0-0.4); EOS % 2.1 % (1.0-4.0); HEMATOCRIT 39.2 % (37.0-47.0); LYMPH # 0.8 10*3/uL (1.3-4.4); LYMPH % 9.8 % (27.0-41.0); MEAN CELL VOLUME 88.5 fl (81.0-99.0); MEAN CORPUSCULAR HGB 29.8 pg (27.0-31.0); MEAN CORPUSCULAR HGB CONC 33.7 g/dl (33.0-37.0); MEAN PLATELET VOLUME 10.5 fl (9.6-12.3); MONO # 0.5 10*3/uL (0.1-1.0); MONO % 5.4 % (3.0-9.0); NEUT # 6.9 10*3/uL (2.3-7.9); NEUT % 81.2 % (47.0-73.0); PLATELET COUNT AUTOMATED 213 10*3/uL (130-400); RED BLOOD COUNT 4.43 10*6/uL (4.10-5.10); RED CELL DISTRI WIDTH 12.4 % (0-14.5); WHITE BLOOD COUNT 8.5 10*3/uL (4.8-10.8)
[2022-10-19 06:29] LABS: BUN 9 mg/dl (9-23); CHLORIDE 110 mmol/L (98-107); POTASSIUM 4.1 mmol/L (3.4-5.1)
[2022-10-19] MEDS ORDERED: ONDANSETRON4 MG SL (08:55)
== END 2022-10-19 09:03 | disposition home or self-care (01) ==
LOC: ED 04:30
PROVIDERS: Internal Medicine
DX: R11.2 Nausea with vomiting, unspecified (principal); Z98.890 Other specified postprocedural states; Z20.822 Contact with and (suspected) exposure to COVID-19

== ENCOUNTER → 2022-11-13 | Outpatient (CLI) | payer BC ==
[~2022-11-13] MED LIST changes: +ONDANSETRON4 MG SL
[2022-11-13 10:34] LABS: ALKALINE PHOSPHATASE 39 U/L (46-116); BUN 10 mg/dl (9-23); CHLORIDE 103 mmol/L (98-107); CHOLESTEROL 117 mg/dL (<200); FREE T4 0.94 ng/dl (0.89-1.76); LDL CHOLESTEROL 57 mg/dL (9-159); SGPT/ALT 11 U/L (10-49); THYROID STIM HORMONE (HS) 7.512 uIU/ml (0.550-4.780); TOTAL PROTEIN 6.7 gm/dL (6.0-8.0)
== END | disposition home or self-care (01) ==
LOC: LAB 09:21
PROVIDERS: ATTEND Internal Medicine Endocrinology, Diabetes & Metabolism
DX: E78.2 Mixed hyperlipidemia (principal); E03.9 Hypothyroidism, unspecified; M79.10 Myalgia, unspecified site

== ENCOUNTER → 2023-01-07 | Outpatient (CLI) | payer BC ==
[2023-01-07 08:40] LABS: HEMATOCRIT 37.9 % (37.0-47.0); MEAN CELL VOLUME 90.9 fl (81.0-99.0); MEAN CORPUSCULAR HGB 29.5 pg (27.0-31.0); MEAN CORPUSCULAR HGB CONC 32.5 g/dl (33.0-37.0); RED BLOOD COUNT 4.17 10*6/uL (4.10-5.10); RED CELL DISTRI WIDTH 12.7 % (0-14.5); WHITE BLOOD COUNT 7.6 10*3/uL (4.8-10.8)
[2023-01-07 08:58] LABS: ALKALINE PHOSPHATASE 42 U/L (46-116); BUN 8 mg/dl (9-23); CHLORIDE 109 mmol/L (98-107); FREE T4 1.32 ng/dl (0.89-1.76); POTASSIUM 3.9 mmol/L (3.4-5.1); SGPT/ALT 17 U/L (10-49); TOTAL PROTEIN 6.4 gm/dL (6.0-8.0)
[2023-01-07 08:59] LABS: THYROID STIM HORMONE (HS) 0.427 uIU/ml (0.550-4.780)
[2023-01-07 09:24] LABS: VITAMIN D, 25-HYDROXY 44.7 ng/mL (30-100)
== END | disposition home or self-care (01) ==
LOC: LAB 08:14
PROVIDERS: ATTEND Family Medicine
DX: R53.83 Other fatigue (principal); E03.9 Hypothyroidism, unspecified; E55.9 Vitamin D deficiency, unspecified; E61.2 Magnesium deficiency; E27.2 Addisonian crisis

== ENCOUNTER → 2023-05-31 | Outpatient (CLI) | payer BC ==
[2023-05-31 12:11] LABS: ALKALINE PHOSPHATASE 44 U/L (46-116); BUN 7 mg/dl (9-23); CHLORIDE 106 mmol/L (98-107); CHOLESTEROL 130 mg/dL (<200); LDL CHOLESTEROL 60 mg/dL (9-159); SGPT/ALT 7 U/L (10-49); TRIGLYCERIDES 48 mg/dl (<150)
== END | disposition home or self-care (01) ==
LOC: LAB 11:14
PROVIDERS: ATTEND Physician Assistant
DX: E03.9 Hypothyroidism, unspecified (principal); E78.2 Mixed hyperlipidemia; E55.9 Vitamin D deficiency, unspecified

== ENCOUNTER → 2023-07-26 | Outpatient (CLI) | payer BC | END | disposition home or self-care (01) | LOC: RAD 08:13 | PROVIDERS: ATTEND Physician Assistant | DX: R19.5 Other fecal abnormalities (principal); M41.56 Other secondary scoliosis, lumbar region ==

== ENCOUNTER → 2023-09-13 | Outpatient (CLI) | payer BC | END | disposition home or self-care (01) | LOC: LAB 14:59 | PROVIDERS: ATTEND Physician Assistant Medical | DX: R19.5 Other fecal abnormalities (principal) ==

== ENCOUNTER → 2023-09-21 | Outpatient (CLI) | payer BC ==
[2023-09-21 09:26] LABS: BUN 10 mg/dl (9-23); CHLORIDE 106 mmol/L (98-107); FREE T4 0.89 ng/dl (0.89-1.76); POTASSIUM 4.4 mmol/L (3.4-5.1)
== END | disposition home or self-care (01) ==
LOC: LAB 08:19
PROVIDERS: ATTEND Internal Medicine Endocrinology, Diabetes & Metabolism
DX: E27.1 Primary adrenocortical insufficiency (principal); E03.9 Hypothyroidism, unspecified

== ENCOUNTER → 2023-11-15 | Outpatient (CLI) | payer BC | END | disposition home or self-care (01) | LOC: LAB 11:28 | PROVIDERS: ATTEND Family Medicine | DX: K52.9 Noninfective gastroenteritis and colitis, unspecified (principal) ==

== ENCOUNTER 2023-12-09 05:49 | Emergency (ER) | payer BC ==
[~2023-12-09] VITALS: Ht 167.6 cm; Wt 58.1 kg
[2023-12-09] MEDS ORDERED: CHOLESTYRAMINE378 G1 PO (06:12)
[2023-12-09 07:08] LABS: BASO % 0.3 % (0.0-1.0); EOS # 0.1 10*3/uL (0.0-0.4); HEMATOCRIT 42.2 % (37.0-47.0); LYMPH # 2.7 10*3/uL (1.3-4.4); LYMPH % 39.8 % (27.0-41.0); MEAN CELL VOLUME 90.4 fl (81.0-99.0); MEAN CORPUSCULAR HGB 29.8 pg (27.0-31.0); MEAN CORPUSCULAR HGB CONC 32.9 g/dl (33.0-37.0); MEAN PLATELET VOLUME 10.3 fl (9.6-12.3); MONO # 0.7 10*3/uL (0.1-1.0); MONO % 9.5 % (3.0-9.0); NEUT # 3.3 10*3/uL (2.3-7.9); NEUT % 48.3 % (47.0-73.0); PLATELET COUNT AUTOMATED 298 10*3/uL (130-400); RED BLOOD COUNT 4.67 10*6/uL (4.10-5.10); RED CELL DISTRI WIDTH 11.8 % (0-14.5); WHITE BLOOD COUNT 6.8 10*3/uL (4.8-10.8)
[2023-12-09 07:37] LABS: ALKALINE PHOSPHATASE 49 U/L (46-116); BUN 13 mg/dl (9-23); CHLORIDE 107 mmol/L (98-107); LIPASE 51 U/L (12-53); POTASSIUM 4.7 mmol/L (3.4-5.1); SGPT/ALT 10 U/L (5-49); TOTAL PROTEIN 7.6 gm/dL (6.0-8.0)
[2023-12-09] MEDS ORDERED: MELOXICAM15 MG PO (09:04)
[2023-12-09] MEDS ORDERED: REGLAN10 M1 PO (09:04)
== END 2023-12-09 09:10 | disposition home or self-care (01) ==
LOC: ED 05:49
PROVIDERS: Internal Medicine
DX: R10.11 Right upper quadrant pain (principal); R19.7 Diarrhea, unspecified; G43.909 Migraine, unspecified, not intractable, without status migrainosus; E03.9 Hypothyroidism, unspecified; Z98.890 Other specified postprocedural states

== ENCOUNTER → 2024-06-19 | Outpatient (CLI) | payer BC ==
[~2024-06-19] MED LIST changes: +CHOLESTYRAMINE378 G1 PO; +MELOXICAM15 MG PO; +REGLAN10 M1 PO
[2024-06-19 11:58] LABS: BASO % 0.4 % (0.0-1.0); EOS # 0.3 10*3/uL (0.0-0.4); EOS % 4.6 % (1.0-4.0); HEMATOCRIT 44.1 % (37.0-47.0); LYMPH # 2.6 10*3/uL (1.3-4.4); MEAN CELL VOLUME 87.2 fl (81.0-99.0); MEAN CORPUSCULAR HGB 30.2 pg (27.0-31.0); MEAN CORPUSCULAR HGB CONC 34.7 g/dl (33.0-37.0); MEAN PLATELET VOLUME 9.6 fl (9.6-12.3); MONO # 0.4 10*3/uL (0.1-1.0); MONO % 6.6 % (3.0-9.0); NEUT # 2.3 10*3/uL (2.3-7.9); NEUT % 41.2 % (47.0-73.0); PLATELET COUNT AUTOMATED 301 10*3/uL (130-400); RED BLOOD COUNT 5.06 10*6/uL (4.10-5.10); RED CELL DISTRI WIDTH 12.1 % (0-14.5); WHITE BLOOD COUNT 5.6 10*3/uL (4.8-10.8)
[2024-06-19 12:35] LABS: BUN 10 mg/dl (9-23); CHLORIDE 105 mmol/L (98-107); FREE T4 1.11 ng/dl (0.89-1.76); POTASSIUM 4.1 mmol/L (3.4-5.1)
== END | disposition home or self-care (01) ==
LOC: LAB 11:33
PROVIDERS: Student in an Organized Health Care Education/Training Program; ATTEND Family Medicine
DX: E27.1 Primary adrenocortical insufficiency (principal); D64.9 Anemia, unspecified; Z86.39 Personal history of other endocrine, nutritional and metabolic disease

== ENCOUNTER → 2025-01-08 | Outpatient (CLI) | payer BC ==
[2025-01-08 10:47] LABS: BUN 11 mg/dl (9-23); CHLORIDE 105 mmol/L (98-107); FREE T4 1.06 ng/dl (0.89-1.76)
== END | disposition home or self-care (01) ==
LOC: LAB 09:53
PROVIDERS: Student in an Organized Health Care Education/Training Program; ATTEND Internal Medicine Endocrinology, Diabetes & Metabolism
DX: E27.1 Primary adrenocortical insufficiency (principal); Z86.39 Personal history of other endocrine, nutritional and metabolic disease

== ENCOUNTER → 2025-06-11 | Outpatient (CLI) | payer BC ==
[~2025-06-11] MED LIST changes: +CHOLESTYRAMINE P4 GM PO; +CORTEF10 M1 PO; +CORTEF5 M1 PO; +MIDODRINE HCL5 M1 PO; +UNITHROID150 MCG PO; +VITAMIN D31250 MC2 PO
[2025-06-11 08:01] LABS: MEAN CELL VOLUME 91.2 fl (81.0-99.0); MEAN CORPUSCULAR HGB 29.5 pg (27.0-31.0); MEAN PLATELET VOLUME 9.4 fl (9.6-12.3); NUCLEATED RED BLOOD CELL 0.0 % (0.0-0.0); NUCLEATED RED BLOOD CELL 0.0 10*3/uL (0.0-0.0); PLATELET COUNT AUTOMATED 253.0 10*3/uL (130-400); RED CELL DISTRI WIDTH 13.3 % (0-14.5)
[2025-06-11 08:29] LABS: BUN 11 mg/dl (9-23); SGPT/ALT 28 U/L (5-49)
[2025-06-11 08:34] LABS: FREE T4 1.13 ng/dl (0.89-1.76)
== END ==
LOC: LAB 07:43
PROVIDERS: Student in an Organized Health Care Education/Training Program; ATTEND Family Medicine
DX: E27.1 Primary adrenocortical insufficiency (principal); E03.9 Hypothyroidism, unspecified; R53.83 Other fatigue